=== PATIENT | female | born 1950 | race Caucasian/White ===

== ENCOUNTER → 2024-10-03 | Outpatient (CLI) | payer MEDICARE ==
--- NOTE | 2024-10-03 12:03 | HMCIMG ---
DEXA BONE DENSITY SURVEY HISTORY: Osteoporosis COMPARISON: None FINDINGS: Bone densitometry study was performed. Bone mineral density of the lumbar spine is 1.037 gram per centimeter square which corresponds to a T score of -0.1 and a Z score of 2.3. Bone mineral density of the left hip is 0.739 grams per centimeter square which corresponds to a T score of -1.7 and a Z score of 0.1. IMPRESSION: 1. Normal bone mineral density of the lumbar spine and osteopenia of left hip.
== END ==
LOC: RAH 10:36
PROVIDERS: ATTEND Internal Medicine
DX: M85.88 Other specified disorders of bone density and structure, other site (principal); M81.0 Age-related osteoporosis without current pathological fracture
CPT/HCPCS: 77080